=== PATIENT | female | born 1995 | race Caucasian/White ===

== ENCOUNTER 2023-11-13 05:03 | Inpatient (IN) | payer OTHER, SELFPAY ==
[2023-11-13] VITALS (36 sets, daily range): BP systolic 102–122; BP diastolic 53–80; PULSE 67–105; RESP 15–18; TEMP 36.4–37.1; O2SAT 96–100; BMI 27.3
[2023-11-13] MEDS: Lactated Ringers 1,000 ML 50 ML IV (05:08)
[2023-11-13 05:32] LABS: Absolute Lymphocyte Count 1.58 X10^3/uL (0.83-4.51); Absolute Neutrophil Count 5.9 X10^3/uL (2.0-7.7); Basophil# 0.03 X10^3/uL; Basophil% 0.4 % (0-1); Eosinophil# 0.04 X10^3/uL; Eosinophils% 0.5 % (0-5); Hematocrit 37.3 % (37-47); Hemoglobin 12.6 g/dL (12.0-15.0); Lymphocyte # 1.58 X10^3/ul (0.83-4.51); Lymphocyte % 19.2 % (19-41); Mean Corp Hgb Conc 33.8 g/dL (32-36); Mean Corpuscular Hgb 29.3 pg (27.0-32.0); Mean Corpuscular Volume 86.7 fL (81-99); Mean Platelet Vol. 9.2 fl (6.2-12.0); Monocyte# 0.56 X10^3/uL; Monocyte% 6.8 % (0-10); NRBC Flagged by Analyzer 0 % (0-5); Neutrophil # 5.89 X10^3/uL (2.7-7.7); Neutrophil % 71.8 % (47-70); Platelet Count 249 K/mm3 (150-450); RBC Distribution Width CV 14.2 % (11.6-14.6); RBC Distribution Width SD 44.6 fl (35.1-43.9); White Blood Count 8.2 K/mm3 (4.4-11.0)
[2023-11-13] MEDS: LACTATED RINGERS 500 ML 999 ML IV (05:35)
[2023-11-13 06:09] LABS: Syphilis Antibodies Non-reactive
--- NOTE | 2023-11-13 08:34 | PCM.PN.CNM ---
Subjective Subjective Patient seen at [facility]. Sitting on edge of bed. Breathing through contractions. Requesting CE with AROM. Objective Data Objective Data Vital Signs: Vital Signs Temp Pulse Resp BP Pulse Ox 98.7 F 92 16 119/71 98 11/13/23 07:17 11/13/23 07:18 11/13/23 07:17 11/13/23 07:17 11/13/23 07:18 Weight: 169 lb 8.568 oz Body Mass Index (BMI) 27.3 Lab / Micro Data 11/13/23 05:08 Labs: Laboratory Results - last 24 hr 11/13/23 05:08: WBC 8.2, RBC 4.30, Hgb 12.6, Hct 37.3, MCV 86.7, MCH 29.3, MCHC 33.8, RDW Std Deviation 44.6 H, RDW Coeff of Rosemary 14.2, Plt Count 249, MPV 9.2, Immature Gran % (Auto) 1.300 H, Neut % (Auto) 71.8 H, Lymph % (Auto) 19.2, Simpson % (Auto) 6.8, Eos % (Auto) 0.5, Baso % (Auto) 0.4, Absolute Neuts (auto) 5.9, Absolute Lymphs (auto) 1.58, Nucleated RBC % 0, Syphilis Total Ab Non-reactive, Blood Type O POSITIVE, Antibody Screen NEGATIVE ROS Eyes Eyes: Denies blurry vision, change in vision or spots in vision ENT HEENT: Denies dizziness or headache(s) Cardiovascular Cardiovascular: Denies abdominal pain, chest pain or dyspnea Respiratory/Chest Respiratory/Chest: Denies cough, dyspnea, shortness of breath at rest or shortness of breath with exertion Gastrointestinal Gastrointestinal: Denies abdominal pain, diarrhea or vomiting Genitourinary Genitourinary: Denies change in urinary stream, difficulty urinating or dysuria Musculoskeletal Musculoskeletal: Reports none Integumentary Integumentary: Denies rash Neurologic Neurologic: Denies dizziness, headache(s), memory loss or weakness Physical Exam Const alert and no apparent distress General Appearance: cooperative and comfortable Exam Limitations: no limitations HEENT normocephalic Eyes General Eye: normal appearance of both eyes Neck full ROM General: normal visual inspection Chest Chest: symmetrical chest wall rise Resp normal respiratory effort and normal air movement Effort and Inspection: symmetric chest movement Auscultation: clear to auscultation bilaterally Cardio regular rate and regular rhythm GI normal to inspection, nondistended, normoactive bowel sounds Back/Spine normal ROM Extremity full ROM and no calf tenderness General Extremity: normal exam except as noted Skin no rashes or lesions noted Neuro CN's II-XII intact bilaterally Psych mental status grossly normal Assessment & Plan (1) 39 weeks gestation of : (2) Nulliparity: (3) Spontaneous onset of labor: PLAN: Plan CE - / bulging bag AROM for clear fluid Repositioned patient to hands and knees- educated FOB on hip/sacral pressure during contractions Patient interested in using Nitrous as needed Anticipate
[2023-11-13] MEDS: Oxytocin 15 Units/NS 250ml 15 UNITS/250 ML IV.SOLN 334 UNITS IV (09:34)
[2023-11-13] MEDS: Methylergonovine 0.2 MG/ML Ampul IM (09:39)
[2023-11-13] MEDS: Oxytocin 15 Units/NS 250ml 15 UNITS/250 ML IV.SOLN 83 UNITS IV (09:54)
[2023-11-13] MEDS: Lidocaine 1% (20 ml mdv) 20 ML Vial INFILT (10:06)
--- NOTE | 2023-11-13 10:35 | EX.PCM.OBRPT ---
Assessment & Plan (1) (spontaneous vaginal delivery): (2) Laceration, obstetrical, second degree: (3) Laceration, obstetrical, first degree: (4) Periurethral tear in female: (5) Care and examination of lactating mother: Maternal Data Information CLARICE Calculator Estimated Delivery Date Method Current WG Current Estimate 11/19/23 Manual 39w 1d Vaginal Delivery Maternal Presentation Maternal Presentation: Active Labor Maternal Presentation: at 39.1 weeks that presented in spontaneous onset of active labor. Type of Induction: Amniotomy (Augmentation) Operative Information Date of Procedure: 11/13/23 Pre-Operative Diagnosis: Term gestation, Spontaneous onset of labor Post-Operative Diagnosis: , Live male infant Surgery / Procedure Performed: Spontaneous Vaginal Delivery Type of Anesthesia: Local with 1% Lidocaine Estimated Blood Loss: 400 Time of Delivery: 09:27 Findings Description of Procedure: Patient quickly progressed to complete dilation with urge to push. With minimal maternal effort, head delivered followed immediately by remainder of body without any downward traction. Vigorous male placed on maternal abdomen and was attended to by nursing staff. Pitocin IV started for active management of the third stage of labor. 3 vessel cord clamped and cut after minimal delay and placed skin to skin with patient. Uterus initially boggy. Methergine IM x1 given. Uterus firmed up with massage. Removed several clots manually with vaginal sweep. Placenta delivered spontaneously and intact. Cord blood collected and sent to lab. Local anesthesia given to patient prior to repair. Bilateral periurethral lacerations repaired using Vicryl 3-0 SH. Second degree perineal and first degree vaginal lacerations repaired in usual fashion using 3-0 vicryl rapid. Hemostasis obtained. Fundus firm 2 below U. Ice placed to perineum. EBL 400 cc. APGARS 8/9. Patient and bonding well at this time. Dr. Chua notified of delivery and repair. Presentation: Vertex Amniotic Membrane Rupture Type: Artificial Time of Membrane Rupture: 813 Amniotic Fluid Description: Clear Placental Delivery Description: Spontaneous Placenta Disposition: [facility] Cord Vessel Description: 3 Vessels Cord Entanglement: None A Gender: Male (1 minute): 8 (5 minute): 9 Delayed Cord Clamping: Yes Post Vaginal Delivery Medications Given After Delivery: IV Pitocin and IM Methergin Episiotomy Description: None Laceration: Periurethral Extnsion/lac, Perineal Extension/lac, Vaginal Extension/lac, 1st degree and 2nd degree Complication Complications: None
[2023-11-13] MEDS: Benzocaine/Lanolin/Aloe Vera 1 SPRAY EACH TOPICAL (15:49)
[2023-11-13] MEDS: Naproxen 500 MG Tablet PO (15:50)
[2023-11-14] VITALS (7 sets, daily range): BP systolic 90–106; BP diastolic 50–66; PULSE 55–85; RESP 14–16; TEMP 36.3–36.9; O2SAT 96–98
[2023-11-14] MEDS: Naproxen 500 MG Tablet PO ×2 (06:20→14:11)
--- NOTE | 2023-11-14 10:17 | PCM.DC.SUM ---
Providers Date of Admission: 11/13/23 Primary Care Physician: ANDREE Tobar Reason For Visit: VAGINAL DELIVERY Diagnosis Discharge Diagnosis (1) (spontaneous vaginal delivery): Status: Acute Code(s): O80 - Encounter for full-term uncomplicated delivery (2) Laceration, obstetrical, second degree: Status: Acute Code(s): O70.1 - Second degree perineal laceration during delivery (3) Laceration, obstetrical, first degree: Status: Acute Code(s): O70.0 - First degree perineal laceration during delivery (4) Periurethral tear in female: Status: Acute Code(s): S37.33XA - Laceration of urethra, initial encounter (5) Care and examination of lactating mother: Status: Acute Code(s): Z39.1 - Encounter for care and examination of lactating mother Plan PPD 1 Pain control support Lochia decreasing Desires discharge home today Medications at Discharge Home Medications ferrous sulfate 325 mg (65 mg iron) tablet (Feosol) 325 mg PO QODAY 11/13/23 [id number] fum 28 mg-folic acid 800 mcg-dha 200 mg oral pack ( + DHA) pkg PO 11/13/23 acetaminophen 500 mg tablet 1,000 mg (2 x 500 mg) PO Q6H PRN PRN Pain 1-10 Or Fever #0 tabs 11/14/23 naproxen 500 mg tablet 500 mg PO Q8H PRN PRN Pain Score 1-10 #0 tabs 11/14/23 Hospital Course Operations None Procedures None Summary of Care Provided Minutes Spent on Discharge: 15 Hospital Course: Patient had . Hospital course was uneventful Physical Exam Const alert and no apparent distress General Appearance: cooperative and comfortable Exam Limitations: no limitations HEENT normocephalic Eyes General Eye: normal appearance of both eyes Neck full ROM General: normal visual inspection Chest Chest: symmetrical chest wall rise Resp normal respiratory effort and normal air movement Effort and Inspection: symmetric chest movement Auscultation: clear to auscultation bilaterally Cardio regular rate and regular rhythm GI normal to inspection, nondistended, normoactive bowel sounds Back/Spine normal ROM Extremity full ROM and no calf tenderness General Extremity: normal exam except as noted Skin no rashes or lesions noted Neuro CN's II-XII intact bilaterally Psych mental status grossly normal Weight / BMI Weight Weight: 169 lb 8.568 oz Body Mass Index (BMI) 27.3 ABG / Lab / Microbiology Data 11/13/23 05:08 D/C Instructions Discharge Diet: No restrictions May resume sexual activity in: 6-8 weeks Weight Bearing Status: Weight bearing as tolerated Call your doctor if you observe: Fever of 101 or Higher, Inability to urinate, Using more than 1 pad per hour, Shortness of breath, Chest pain, Calf discomfort and Uncontrolled pain Please Follow Up With: Krista Mejia CNM When: 2 weeks post Meaningful Use Info Meaningful Use Meaningful Use Diagnoses (Choose all that apply): None applicable Ischemic Stroke Statin Dosing Therapy Reference: STATIN DOSE THERAPY REFERENCE: * Patients > 75 years receive moderate or high dose statin therapy. * Patients 75 years or YOUNGER should receive HIGH intensity statin dose unless contraindicated. You will be required to document reason for non-treatment if statin daily dose does not meet guidelines. HIGH DOSE STATIN THERAPY DAILY Atorvastatin > than or = to 40 mg Rosuvastatin > than or = to 20 mg Amlodipine + Atorvastatin > than or = to 2.5/40 mg Ezetimibe + Simvastatin 10/80 mg Simvastatin 80mg Discharge Plan Admission Admit Date/Time: 11/13/23 05:03 Primary Reason for Your Visit: Labor and Delivery Attending Provider: Krista Mejia Primary Care Provider: Ivan Astorga Discharge Orders/Prescriptions Prescriptions: New acetaminophen 500 mg Tablet 1,000 mg PO Q6H PRN PRN (Reason: Pain 1-10 Or Fever) Qty: 0 0RF naproxen 500 mg Tablet 500 mg PO Q8H PRN PRN (Reason: Pain Score 1-10) Qty: 0 0RF Continued + DHA 28 mg iron-800 mcg-200 mg combo pack PO ferrous sulfate [Feosol] 325 mg (65 mg iron) tablet 325 mg PO QODAY Referrals / Follow Up: Krista Mejia CNM [Med Staff - Adv Practice Prof] - Ivan Astorga PA [Primary Care Provider] - Disposition Disposition (needs filled in before D/C Order can be placed): Home, Self Care
--- NOTE | 2023-11-14 14:00 | CASEMGMT ---
Social Work: Social Work Assessment Labor and Delivery Unit Patient Address: [address] [place] [address].? [place] [address] Phone number: Date of Referral: 11/13/2023? Time of Referral: 05:07 Referred By: Maureen Talavera Date of Intervention: 11/14/2023? Time of Intervention:? 1400 Reason for Referral: ? hx alcohol? History obtained from: Mother of baby (MOB), father of baby (FOB) and medical records. Household composition: MOB, FOB (Jerome) and baby (son, Stuart). No one else will live in the home. Patient's parent/guardian status:? MOB and FOB have been for 2 years.? FOB is involved, living in the home and can help care for baby as needed. Medical History: ?1 , 1 . MOB received care through [facility]. Baby?s birthweight: 7lbs, 4oz. Apgars: 8 and 9. Educational Status: No concerns with reading or writing.? SRINIVASA reported she went to school through grade 8. Financial Status: Secure. MOB and FOB reported they are financially able to meet the needs of baby at this time. MOB is currently unemployed and will be a stay at home mom and JOCELYN has a [employer] business with his brother where he builds furniture electronic die maker. Infant Supplies: MOB and FOB reported they have all the supplies needed for baby including but not limited to: crib, car seat, clothing and diapers. SRINIVASA plans to breastfeed and denied that she has a pump however stated she can either borrow one from friends or family or can order one. Childcare/Caregiver(s):? MOB and extended family can help as needed. Transportation: Intact. MOB and FOB have transportation and drivers that can take baby to medical appointments as needed/scheduled. Programs/Agencies Involved: Denied. ??? Children Services/Legal Issues: N/A; first child. ? Behavioral Health Issues: ??Mental Health History: MOB and FOB both denied. ?Substance Use History: MOB and FOB both denied. FOB reported that he drinks socially and also smokes tobacco occasionally. ??Family History: Not reported. ?Drug Screens: ?None Family/Social Stressors:? MOB and FOB denied any current family or social stressors. Support Systems: Ample.? MOB identified her , her two sisters, MGM and PGM as supports. Depression/Shaken Baby/Safe Sleeping: sample shoe inspector and reworker provided verbal and written educational materials on PPD, Shaken Baby and Safe Sleeping. Both MOB and FOB verbalized they understood. ASSESSMENT:? MOB and FOB granted consent for social work visit.? Upon entry, MOB was observed to be sitting upright in the hospital bed holding baby. MOB appeared to be attached and bonded, had baby dressed and wrapped in a blanket and was providing comfort to baby as needed. FOB was also present and was sitting nearby visiting with MOB and baby. Positive interaction was observed between MOB and FOB. Both were verbally engaged throughout the visit and noted appreciation for the education. sample shoe inspector and reworker requested for to leave the room so pediatric social worker could speak with MOB in private which both agreed to. MOB denied any safety concerns in the home or domestic violence.? MOB denied any drug or alcohol abuse in the home and reported she feels safe. Senior Business Intelligence Analyst for baby will be Dr. Jhonathan Field through [facility]. ? Safe Plan of Care for infant related to substance use: N/A??? PLAN:?Baby to discharge home with MOB and FOB. No concerns reported or identified. sample shoe inspector and reworker also provided written information on Help Me Grow and PPD resources for counseling if needed. Lee Ann Doran, SURFACING TECHNICIAN, PLATE CLEANER
--- NOTE | 2023-11-23 18:57 | HP.PCM.OB_ITS ---
HPI - General General Date of Admission: 11/13/23 Date of Service: 11/13/23 Chief Complaint: labor HPI Narrative AGUEDA CARDENAS, is a 28 F who presents with contractions 6 cm with BBOW. Maternal Data Information CLARICE Calculator Estimated Delivery Date Method Current WG Current Estimate 11/19/23 Manual 40w 4d PFSH PFSH Medical History (Updated 11/23/23 @ 19:[address] Maureen Talavera, DO) Care and examination of lactating mother Periurethral tear in female Laceration, obstetrical, first degree Laceration, obstetrical, second degree (spontaneous vaginal delivery) Medical History no medical history Home Medications ?Medication ?Instructions ?Recorded ?Last Taken ?Type ferrous sulfate 325 mg (65 mg 325 mg PO QODAY 11/13/23 11/12/23 History iron) tablet (Feosol) [id number] fum 28 pkg PO 11/13/23 11/12/23 History mg-folic acid 800 mcg-dha 200 mg oral pack ( + DHA) acetaminophen 500 mg tablet 1,000 mg (2 x 500 mg) PO Q6H PRN 11/14/23 Unknown Rx PRN Pain 1-10 Or Fever #0 tabs naproxen 500 mg tablet 500 mg PO Q8H PRN PRN Pain Score 11/14/23 Unknown Rx 1-10 #0 tabs Allergy/AdvReac Type Severity Reaction Status Date / Time No Known Allergies Allergy Verified 11/13/23 05:00 Family History no significant family his Surgical History (Updated 11/13/23 @ 06:29 by Elisa Moreno) History of surgery Social History Smoking Status: Never smoker History Elective abortions Hx Para 0 Spontaneous abortions Hx # Term Pregnancies Ectopic pregnancies Hx # Pregnancies Multiple births # of living children NST FHR Rate Baby A FHR Category:: Category I Vital Signs Vital Signs Vital Signs: Weight Weight: 169 lb 8.568 oz Body Mass Index (BMI) 27.3 Labs Labs Labs: Blood Type O POSITIVE Antibody Screen NEGATIVE Hct 37.3 % (37-47) Hgb 12.6 g/dL (12.0-15.0) Syphilis Total Ab Non-reactive Assessment & Plan (1) 39 weeks gestation of : PLAN: Admit for routine intrapartum care. GBS negative. Epidural PRN pain control. EFW expected AGA. Discussed with provider sulfonation equipment operator for today. (2) Active labor at term:
== END 2023-11-14 14:50 | disposition home or self-care (01) | DRG 807 ==
LOC: WP 05:07
PROVIDERS: Admitting Provider Obstetrics & Gynecology; PCP Physician Assistant; Referring Provider Advanced Practice Midwife; Visit Provider Advanced Practice Midwife
DX: O70.1 Second degree perineal laceration during delivery (principal); Z37.0 Single live birth; O71.82 Other specified trauma to perineum and vulva; Z3A.39 39 weeks gestation of pregnancy
CPT/HCPCS: 59025; 59050; 85025; 86780; 86850; 86900; 86901; 99221; J7120; G0378